=== PATIENT | male | born 2000 | race Caucasian/White ===

== ENCOUNTER 2023-04-17 02:39 | Emergency (ER) | payer SELFPAY ==
[2023-04-17] MEDS ORDERED: Nicotine 21 MG PATCH TOP SCH (04:00)
== END 2023-04-17 12:33 ==
LOC: EEVIPCON 02:39 → ERS 02:39
DX: R45.851 Suicidal ideations (principal); F17.200 Nicotine dependence, unspecified, uncomplicated
CPT/HCPCS: 99285

== ENCOUNTER 2025-03-21 01:54 | Emergency (ER) | payer BC, OTHER, SELFPAY | END 2025-03-21 02:02 | LOC: ERS 01:54 | DX: F19.10 Other psychoactive substance abuse, uncomplicated (principal); F17.200 Nicotine dependence, unspecified, uncomplicated | CPT/HCPCS: 99284 ==